=== PATIENT | male | born 2005 | race Caucasian/White ===

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

== ENCOUNTER 2025-06-03 09:23 | Emergency (ER) | payer BC, SELFPAY ==
--- OUTSIDE RECORDS SUMMARY | 2025-06-03 09:25 | XMS_ITS | Patient Health Record ---
Author Organization [facility] Address [address] [place], [place] [id number] Care Team Providers Care Music Copyist Name Role Phone Porfirio MILES, Reilly Primary Care Provider Margie MILES, Toan Unavailable [phone] Reason For Referral No Information Medications Medication SIG (Take, Route, Frequency, Duration) Notes Start Date End Date Status MiraLax as directed Orally ActiveAlbuterol HFA 108 (90 Base) MCG/ACT2 puffs inhalation every 4 hrs as neededActiveErythromycin EES3 mls TIDActive Problems Problem Type SNOMED Code ICD Code Onset Dates Problem Status W/U Status Risk Notes Problem Gastroesophageal reflux disease (52801369 9) GE Reflux (530.81) ActiveconfirmedProblemAsthma (475641971)Asthma (493.90)Activeconfirmed Plan Of Treatment No Information Insurance Providers Payer Name Payer Address Payer Phone Subscriber Number Group Number Insured Name Patient Relationship to Insured Coverage Start Date Coverage End Date [facility] [address] [address] [place] [address] [id number] Patrick Deluna Natural Child - Insured has Financial Responsibility 0 Medical (General) History Medical History History ICD Code Dr. Krishna with GI did a GIL and endosc opy [facility] last month. they added the miralax. He did well after the full bowel clean out however the past few weeks he has complained of a stomach pain.
[2025-06-03 09:33] VITALS: BP 125/66; PULSE 105; RESP 18; TEMP 37.1; O2SAT 98; BMI 28.6
--- NOTE | 2025-06-03 09:59 | CRLHL7_ITS ---
For Patients: As a result of the 21st Century Cures Act, medical imaging exams and procedure reports are released immediately into your electronic medical record. You may view this report before your referring provider. If you have questions, please contact your health care provider. INDICATION: Tonsillar swelling. COMPARISON: None. TECHNIQUE: CT of the neck with contrast. Multiplanar axial, coronal, and sagittal reformats were reconstructed. Intravenous contrast: 106 mL Isovue 3 7. FINDINGS: Lymph nodes: Enlarged bilateral cervical lymph nodes, predominantly at level II. Right level II lymph nodes measure 1.9 x 1.5 and 2.0 x 1.1 cm. Left level 2 lymph nodes measure 2.1 x 1.5 cm and 1.4 x 1.4 cm. Enlarged right axillary lymph node measures 1.2 x 2.1 cm. Enlarged left axillary lymph node measures 1.4 x 1.5 cm. Parotid and submandibular glands: Normal. Thyroid gland: There is a 6 millimeter left thyroid nodule. There is a 5 millimeter right thyroid nodule. Tonsils, airway, and parapharyngeal spaces. The adenoids are enlarged. The palatine tonsils are severely enlarged. The lingual tonsils are mildly enlarged. There is some heterogeneous tonsillar enhancement. No peritonsillar or retropharyngeal abscess. There is significant effacement of the posterior nasopharyngeal and oropharyngeal airway. The epiglottis and aryepiglottic folds are normal. The subglottic trachea is unremarkable. Paranasal sinus: Small mucocele in the right maxillary sinus. Very mild ethmoid and maxillary sinus thickening. There is a leftward nasal septal spur. Soft tissues: Normal. No swelling. No foreign body. Arteries: No atherosclerosis. Veins: No deep vein thrombosis. Lung apices: Normal. Bones: No fractures. No focal bone lesions. Normal for age. Included intracranial contents, orbits and mastoids: Normal. IMPRESSION: 1. Tonsillitis with severely enlarged palatine tonsils that efface the posterior oropharyngeal airway. No peritonsillar or retropharyngeal abscess. 2. Large bilateral cervical adenopathy at multiple levels, but primarily at level II. There also mildly enlarged bilateral axillary lymph nodes. Presumably reactive adenitis. Correlate for any B symptoms / concerning labs. Recommend clinical follow-up to resolution. 3. There are 5 mm and 6 mm thyroid nodules. Recommend nonemergent outpatient thyroid ultrasound. Please note that all CT scans at this facility use dose modulation, iterative reconstruction, and/or weight-based dosing when appropriate to reduce radiation dose to as low as reasonably achievable. Dictated by Ayde Tam MD @ 06/03/2025 10:38:07 AM (Electronically Signed)
--- NOTE | 2025-06-03 10:00 | ED.GENADULT ---
HPI - General Adult General Chief complaint: Sore Throat Stated complaint: sore throat Time Seen by Provider: 06/03/25 09:52 History of Present Illness HPI narrative: This 19-year-old male comes in reporting sore throat for the past week or so. He went to urgent care and was negative for strep infection. He received a prescription for Zithromax and has been taking that for the past couple days. He comes in with muffled voice but does not have trismus. He does not report any fevers. He does not report a cough or nasal congestion. Related Data Previous Rx's ?Medication ?Instructions ?Recorded azithromycin 250 mg tablet See Rx Instructions PO .COMPLEX #6 06/01/25 (Zithromax Z-Maurilio) tabs ketorolac 10 mg tablet 10 mg PO TID 5 days #15 tabs 06/03/25 methylprednisolone 4 mg tablets in See Rx Instructions PO .COMPLEX 06/03/25 a dose pack (Medrol (Maurilio)) #21 ea Allergies Allergy/AdvReac Type Severity Reaction Status Date / Time Sulfa (Sulfonamide Allergy Intermediate Rash Verified 06/03/25 09:33 Antibiotics) Sulfa drugs Allergy Intermediate fevers, Uncoded 06/01/25 11:48 rash Review of Systems Status of ROS: Reports: 10 or more systems reviewed and unremarkable except as noted in History and below Narrative: Constitutional: No fevers, no weight gain or loss. Eyes: No discharge. No vision changes. HENT: No congestion, no ear pain. Sore throat with muffled voice. Cardiovascular: No chest pain, no palpitations. Respiratory: No shortness of breath, no wheezes, no cough. Gastrointestinal: No abdominal pain, no vomiting, no diarrhea. Genitourinary: No dysuria, no hematuria. Musculoskeletal: Normal range of motion. Skin: No rashes, no pruritis. Neurological: No dizziness, weakness, sensory change, speech change. Endo/Heme/Allergies: No bruising or bleeding. No polydipsia. Pysch: no suicidality, no anxiety, no insomnia. All other systems reviewed and are negative. 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 face and neck (ICD-10) Surgical History Status post open reduction and internal fixation (ORIF) of fracture ?Z98.890 - Other specified postprocedural states (ICD-10) ?Z87.81 - Personal history of (healed) traumatic fracture (ICD-10) Status post adenoidectomy ?Z90.89 - Acquired absence of other organs (ICD-10) History of sinus surgery ?Z98.890 - Other specified postprocedural states (ICD-10) Social History Smoking Status: Never smoker Do you use any of these nicotine containing products: None Second hand tobacco smoke exposure: No How often do you have a drink containing alcohol: never AUDIT-C Alcohol total score: 0 Non-prescribed substance use: denies use Exam Narrative: Exam Narrative: Constitutional: Well-developed, well-nourished, no acute distress. HEENT: Normocephalic, atraumatic. Bilateral tonsillar erythema and swelling with exudate. Muffled voice. No trismus. Neck: Normal range of motion. Nontender. Supple. Heart: Regular. No murmurs. Normal rate. Intact distal pulses. Lungs: Clear to auscultation. No chest discomfort. No wheezes, rhonchi, or rales. Abdomen: Normal bowel sounds. Nontender. No rebound tenderness. Genitalia: Deferred. Back: No midline tenderness. Normal range of motion. Extremities: Normal range of motion. No injury. Skin: Intact. No rash. Warm. No erythema or pallor. Neurologic: No altered sensation. No weakness. Alert and oriented. Psychiatric: No suicidality. No anxiety or depression. No insomnia. Nursing notes and vitals signs are reviewed. Const: Vital Signs, click to edit/add: Vital Signs - 24 hr 06/03/25 09:33 Temperature 98.8 F Pulse Rate [Pulse Oximeter] 105 H Respiratory Rate 18 Blood Pressure [Ri ght Upper Arm] 125/66 Pulse Oximetry 98 Oxygen Delivery Me thod Room Air Course Vital Signs Vital signs: Initial Vital Signs Temperature 98.8 F 06/03/25 09:33 Temperature Source Temporal Artery Scan 06/03/25 09:33 Pulse Rate 105 H 06/03/25 09:33 Respiratory Rate 18 06/03/25 09:33 Blood Pressure 125/66 06/03/25 09:33 Blood Pressure Mean 85 06/03/25 09:33 Pulse Oximetry 98 06/03/25 09:33 Oxygen Delivery Method Room Air 06/03/25 09:33 Vital Signs Temperature 98.8 F 06/03/25 09:33 Pulse Rate 105 H 06/03/25 09:33 Respiratory Rate 18 06/03/25 09:33 Blood Pressure 125/66 06/03/25 09:33 Pulse Oximetry 98 06/03/25 09:33 Oxygen Delivery Method Room Air 06/03/25 09:33 Temperature 98.8 F 06/03/25 09:33 Pulse Rate 105 H 06/03/25 09:33 Respiratory Rate 18 06/03/25 09:33 Blood Pressure 125/66 06/03/25 09:33 Pulse Oximetry 98 06/03/25 09:33 Oxygen Delivery Method Room Air 06/03/25 09:33 Medications Administered Medications: Discontinued Medications Generic Name Dose Route Start Last Admin Trade Name Freq PRN Reason Stop Dose Admin Methylprednisolone Sodium Succinate 125 mg 06/03/25 10:00 06/03/25 10:47 Methylprednisolone Sod Succ 62.5 Mg/Ml (125) IVP 06/03/25 10:01 125 mg ONCE ONE Administration Medical Decision Making MDM Narrative Medical decision making narrative: This patient comes in with sore throat and muffled voice. He has been taking Zithromax without any relief. An IV was established and labs are acquired. CT imaging is also obtained and shows bilateral tonsillar swelling but no sign of abscess. His airway is intact. The patient returns positive for mononucleosis. He did receive an IV dose of Solu-Medrol 125 mg. He is not reporting any abdominal pain. He does play baseball which is not usually a contact sport but I advised him regarding the risk for splenic complications. He is okay to be discharged home. I did provide a prescription for Medrol Dosepak and Toradol. Lab Data Labs: Lab Results 06/03/25 Range/Units 10:15 WBC 8.93 (4.50-11.00) K/uL RBC 5.02 (4.30-5.90) m/uL Hgb 14.9 (13.5-17.5) gm/dL Hct 45.4 (37.0-53.0) % MCV 90 (80-100) fL MCH 30 (26-34) pg MCHC 33 (32-36) gm/dL RDW Coeff of Reddy 13.0 (11.5-15.5) % Plt Count 148 (140-440) K/uL Neut % (Auto) 37.9 L (42.0-72.0) % Lymph % (Auto) 54.6 H (20-44) % [place] % (Auto) 6.9 (0.0-11.0) % Eos % (Auto) 0.3 (0.0-7.0) % Baso % (Auto) 0.2 (0.0-3.0) % Neut # (Auto) 3.40 (1.7-7.0) K/uL Lymph # (Auto) 4.90 H (0.90-2.90) K/uL [place] # (Auto) 0.60 (0.00-0.90) K/UL Eos # (Auto) 0.03 (0.00-0.50) K/uL Baso # (Auto) 0.02 (0.00-0.30) K/uL Abs Immat Gran (auto) 0.01 (0.00-0.30) K/uL Imm/Tot Granulo (auto) 0.1 % Monoscreen POSITIVE A (Negative) Discharge Plan Discharge Clinical Impression: Infectious mononucleosis Patient Disposition: Home w/ Parent or Adult Condition: Unchanged Additional Instructions: Take medications as prescribed. Use [id number] medicines also as needed and directed. Follow up with MD return if worsening. Prescriptions: New ketorolac 10 mg tablet 10 mg PO TID 5 Days Qty: 15 0RF methylprednisolone [Medrol (Maurilio)] 4 mg tablets,dose pack See Rx Instructions .ROUTE .COMPLEX Qty: 21 0RF Rx Instructions: orally per package directions No Action azithromycin [Zithromax Z-Maurilio] 250 mg tablet See Rx Instructions PO .COMPLEX Qty: 6 0RF Rx Instructions: Two p.o. as single dose day 1, then 1 p.o. days 2 through 5, then discontinue. Follow Up/Referrals: Provider,Not a Local [Non-Staff, Family Practice] Stand Alone Forms: MyHealth Info Instructions
[2025-06-03 10:24] LABS: Hematocrit* 45.4 % (37.0-53.0); Hemoglobin* 14.9 gm/dL (13.5-17.5); Immature Granulocytes Abs Auto 0.01 K/uL (0.00-0.30); Immature Granulocytes Pct Auto 0.1 %; Mean Corpuscular HGB Conc 33 gm/dL (32-36); Mean Corpuscular Hemoglobin 30 pg (26-34); Mean Corpuscular Volume 90 fL (80-100); RDW Coefficient of Variation % 13.0 % (11.5-15.5); Red Blood Count* 5.02 m/uL (4.30-5.90); White Blood Count* 8.93 K/uL (4.50-11.00)
[2025-06-03 10:47] LABS: Lymphocytes Absolute Auto 4.90 K/uL (0.90-2.90)
[2025-06-03] MEDS: METHYLPREDNISOLONE SOD SUCC 62.5 MG/ML (125) 125 MG IVP (10:47)
[2025-06-03 10:48] LABS: Mono Screen* POSITIVE (Negative); Slide Review Reflex No
[2025-06-03 11:25] VITALS: PULSE 90; RESP 18; O2SAT 99
== END 2025-06-03 11:26 | disposition home or self-care (01) ==
PROVIDERS: Emergency Provider Emergency Medicine Emergency Medical Services; PCP Family Medicine
DX: B27.90 Infectious mononucleosis, unspecified without complication (principal)
CPT/HCPCS: 36415; 70491; 85025; 86308; 87631; 87651; 96374; 99284; 99285; J2919; Q9967